=== PATIENT | female | born 1975 | race African-American/Black ===

== ENCOUNTER 2017-04-30 02:30 | Emergency (ER) | payer OTHER ==
[~2017-04-30] VITALS: Ht 167.6 cm; Wt 96.0 kg
[~2017-04-30 02:30] MED LIST: ALBUTEROL; NORCO; UNK ANTIBIOTIC
[2017-04-30] MEDS ORDERED: METHYLPREDNISOLONE SOD SUCC 125 MG/2 ML VIAL IV STA (04:36)
[2017-04-30] MEDS ORDERED: ALBUTEROL (0.083%) 2.5MG/3ML NEB HHN STA (04:36)
[2017-04-30] MEDS ORDERED: IPRATROPIUM BROMIDE (0.02%) 0.5MG/2.5ML NEB HHN STA (04:36)
[2017-04-30] MEDS ORDERED: MAGNESIUM 2 G PREMIX 50 ML IV ONE (04:45)
[2017-04-30] MEDS ORDERED: SODIUM CHLORIDE 0.9% 1,000 ML IV ONE (04:45)
[2017-04-30] MEDS ORDERED: IPRATROPIUM/ALBUTEROL 0.5-3(2.5)MG/3ML NEB HHN ONE (06:30)
[2017-04-30 07:01] VITALS: BP 127/84
== END 2017-04-30 07:41 | disposition home or self-care (01) ==
LOC: ER 02:30
DX: J45.901 Unspecified asthma with (acute) exacerbation (principal); Z88.6 Allergy status to analgesic agent; R03.0 Elevated blood-pressure reading, without diagnosis of hypertension; Z87.01 Personal history of pneumonia (recurrent)
CPT/HCPCS: 94640; 96365; 99284; J2930; J3475; J7030; J7611; Z7610